=== PATIENT | female | born 1945 | race Caucasian/White ===

== ENCOUNTER 2022-11-30 04:34 | Day surgery (SDC) | payer OTHER ==
[2022-11-25 09:04] VITALS: BMI 29.7
[2022-11-30 10:15] VITALS: TEMP 97
[2022-11-30 10:23] VITALS: RESP 15
[2022-11-30 10:50] VITALS: PULSE 65
[2022-11-30 10:51] VITALS: BP 130/57
== END 2022-11-30 10:50 | disposition home or self-care (01) ==
LOC: JASU-ENDO 04:34
PROVIDERS: ATTEND Internal Medicine Gastroenterology
PROC: 0DBN8ZX Excision of Sigmoid Colon, Via Natural or Artificial Opening Endoscopic, Diagnostic (ICD-10-PCS; principal; 2022-11-30 11:00)
DX: Z12.11 Encounter for screening for malignant neoplasm of colon (principal); D12.5 Benign neoplasm of sigmoid colon; K64.8 Other hemorrhoids; K57.30 Diverticulosis of large intestine without perforation or abscess without bleeding; Z86.010 Personal history of colon polyps
CPT/HCPCS: 88305-TC